=== PATIENT | male | born 1990 | race African-American/Black ===

== ENCOUNTER 2018-08-01 06:40 | Emergency (ER) | payer OTHER ==
[~2018-08-01] VITALS: Ht 185.4 cm; Wt 99.8 kg
[~2018-08-01 06:40] MED LIST: AMOX500C2 PO; IBUP800T26 PO; PENI500T PO; SULF1TAB38 PO
[2018-08-01] MEDS ORDERED: hydrALAZINE (APESOLINE) 20 MG/ML VIAL IV ONE (07:00)
[2018-08-01 07:09] LABS: BASOPHILS % (AUTO) 0 % (0-10); EOSINOPHILS # (AUTO) 0.1 10^3/uL (0.0-0.3); EOSINOPHILS % (AUTO) 1 % (0-10); HEMATOCRIT 44 % (40-54); HEMOGLOBIN 14.7 G/DL (13.3-17.7); LYMPHOCYTES % (AUTO) 30 % (12-44); MEAN CORPUSCULAR HEMOGLOBIN 30 PG (25-34); MEAN CORPUSCULAR HGB CONC 34 G/DL (32-36); MEAN CORPUSCULAR VOLUME 88 FL (80-99); MEAN PLATELET VOLUME 9.7 FL (7.4-10.4); MONOCYTES # (AUTO) 0.6 X 10^3 (0.0-1.0); MONOCYTES % (AUTO) 6 % (0-12); NEUTROPHILS # (AUTO) 6.2 X 10^3 (1.8-7.8); NEUTROPHILS % (AUTO) 63 % (42-75); PLATELET COUNT 250 10^3/uL (130-400); RED CELL DISTRIBUTION WIDTH 13.3 % (10.0-14.5); WHITE BLOOD COUNT 9.8 10^3/uL (4.3-11.0)
--- NOTE | 2018-08-01 07:09 | ED Cough/URI ---
General Stated Complaint: CP,SOB Source: patient Exam Limitations: no limitations History of Present Illness Date Seen by Provider: Aug 01, 2018 Time Seen by Provider: 07:04 Initial Comments This 27-year-old white male presents with cough for 2 months and chest pain for 2 weeks. Patient relates that it been smoking until 2 months ago when he developed cough. Stopping smoking and has not helped. The cough is nonproductive. 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 Patient's left-sided chest pain as pleuritic in nature and is relieved by raising his left arm over his head and belching. There does not appear to be a family history of heart disease. The chest pain is nonexertional in nature. Patient denies associated fever or chill. Patient has been told that he has high blood pressure which he is not treating. Allergies and Home Medications Allergies Coded Allergies: No Known Drug Allergies (Unverified , 11/23/10) Home Medications Amoxicillin 500 Mg Capsule, 2 EACH PO TID Prescribed by: JEAN MULLEN on 06/27/14 1318 Patient Home Medication List Home Medication List Reviewed: Yes Review of Systems Review of Systems Constitutional: No chills, No fever, No weakness EENTM: No ear pain, No throat pain Respiratory: see HPI, cough Cardiovascular: see HPI, chest pain Gastrointestinal: No abdominal pain, No diarrhea, No nausea, No vomiting Genitourinary: no symptoms reported; No dysuria, No frequency Musculoskeletal: no symptoms reported; No back pain Skin: No rash Psychiatric/Neurological: No Symptoms Reported Hematologic/Lymphatic: No Symptoms Reported Immunological/Allergic: no symptoms reported Past Itnbxgy-Oefcwd-Nkisnr Hx Past Med/Social Hx: Reviewed Nursing Past Med/Soc Hx Patient Social History Recent Foreign Travel: No Contact w/Someone Who Travel: No Past Medical History Reproductive Disorders: No Family Medical History No Pertinent Family Hx Physical Exam Vital Signs - First Documented 08/01/18 06:45 Temp 97.9 Pulse 109 Resp 18 B/P (MAP) 186/119 (141) Pulse Ox 99 O2 Delivery Nasal Cannula Capillary Refill : Height: 6'1" Weight: 220lbs. oz. 99.184581tv; BMI Method:Stated General Appearance: WD/WN, no apparent distress Eyes: Bilateral Eye Normal Inspection HEENT: normal ENT inspection Neck: supple, normal inspection Respiratory: normal breath sounds Cardiovascular: regular rate, rhythm, no murmur Gastrointestinal: normal bowel sounds, soft Extremities: normal range of motion, non-tender, normal inspection Neurologic/Psychiatric: no motor/sensory deficits, alert, normal mood/affect, oriented x 3 Skin: normal color, warm/dry Progress/Results/Core Measures Suspected Sepsis SIRS Temperature: Pulse: Respiratory Rate: Laboratory Tests 08/01/18 07:00: White Blood Count 9.8 Blood Pressure / Mean: Laboratory Tests 08/01/18 07:00: Creatinine 1.06, Platelet Count 250, Total Bilirubin 0.3 Results/Orders Lab Results Laboratory Tests Test 08/01/18 07:00 Range/Units White Blood Count 9.8 4.3-11.0 10^3/uL Red Blood Count 4.95 4.35-5.85 10^6/uL Hemoglobin 14.7 13.3-17.7 G/DL Hematocrit 44 40-54 % Mean Corpuscular Volume 88 80-99 FL Mean Corpuscular Hemoglobin 30 25-34 PG Mean Corpuscular Hemoglobin Concent 34 32-36 G/DL Red Cell Distribution Width 13.3 10.0-14.5 % Platelet Count 250 130-400 10^3/uL Mean Platelet Volume 9.7 7.4-10.4 FL Neutrophils (%) (Auto) 63 42-75 % Lymphocytes (%) (Auto) 30 12-44 % Monocytes (%) (Auto) 6 0-12 % Eosinophils (%) (Auto) 1 0-10 % Basophils (%) (Auto) 0 0-10 % Neutrophils # (Auto) 6.2 1.8-7.8 X 10^3 Lymphocytes # (Auto) 3.0 1.0-4.0 X 10^3 Monocytes # (Auto) 0.6 0.0-1.0 X 10^3 Eosinophils # (Auto) 0.1 0.0-0.3 10^3/uL Basophils # (Auto) 0.0 0.0-0.1 10^3/uL Sodium Level 140 135-145 MMOL/L Potassium Level 3.3 L 3.6-5.0 MMOL/L Chloride Level 106 98-107 MMOL/L Carbon Dioxide Level 22 21-32 MMOL/L Anion Gap 12 5-14 MMOL/L Blood Urea Nitrogen 15 7-18 MG/DL Creatinine 1.06 0.60-1.30 MG/DL Estimat Glomerular Filtration Rate > 60 BUN/Creatinine Ratio 14 Glucose Level 97 70-105 MG/DL Calcium Level 10.4 H 8.5-10.1 MG/DL Corrected Calcium 8.5-10.1 MG/DL Total Bilirubin 0.3 0.1-1.0 MG/DL Aspartate Amino Transf (AST/SGOT) 24 5-34 U/L Alanine Aminotransferase (ALT/SGPT) 22 0-55 U/L Alkaline Phosphatase 80 40-136 U/L Troponin I < 0.028 <0.028 NG/ML Total Protein 8.6 H 6.4-8.2 GM/DL Albumin 5.2 H 3.2-4.5 GM/DL My Orders Orders - KANIKA VO MD Cbc With Automated Diff (08/01/18 06:58) Comprehensive Metabolic Panel (08/01/18 06:58) Troponin I (08/01/18 06:58) Chest 1 View, Ap/Pa Only (08/01/18 06:58) Ekg Tracing (08/01/18 06:58) Hydralazine Injection (Apresoline Inject (08/01/18 07:00) Vital Signs/I&O 08/01/18 08/01/18 06:45 06:45 Temp 97.9 Pulse 109 Resp 18 B/P (MAP) 186/119 (141) Pulse Ox 99 O2 Delivery Nasal Cannula Capillary Refill : Progress Note : Time: 08:00 Progress Note The patient's chest x-ray was clear. EKG demonstrated LVH by voltage criteria no acute current of injury was noted the patient was in a sinus rhythm at 80. Patient's blood pressure was significantly elevated. He was treated with 10 mg of hydralazine IV. Patient's blood pressure began to normalize. I discussed findings with the patient. I asked that he continue with clonidine for which I wrote a prescription. 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 I asked that he return if any problems or questions. Departure Impression Primary Impression: Viral URI Additional Impression: Hypertension Qualified Codes: I10 - Essential (primary) hypertension Disposition: 01 HOME, SELF-CARE Condition: Improved Departure-Patient Inst. Decision time for Depature: 08:03 Referrals: [facility],LOCAL PHYSICIAN (PCP) Primary Care Physician Patient Instructions: High Blood Pressure (DC) Add. Discharge Instructions: Clonidine 0.1 mg orally twice daily. Follow up closely with [facility] on Friday. Return of any problems or questions. KANIKA VO MD Aug 01, 2018 07:09
--- NOTE | 2018-08-01 07:25 | Diagnostic Imaging Report ---
CHEST 1 VIEW, AP/PA ONLY Indication: Chest pain and shortness of air Comparison: 06/27/2014 Findings: No focal airspace disease in the visualized lungs. Please note that the posterior lower lobes are poorly evaluated by portable radiography. No pleural effusion or pneumothorax. Normal cardiomediastinal silhouette. Impression: No acute cardiopulmonary process by portable radiography. Dictated by: Dictated on workstation # [id number]
[2018-08-01 07:26] LABS: ALANINE AMINOTRANSFERASE 22 U/L (0-55); ALBUMIN 5.2 GM/DL (3.2-4.5); ALKALINE PHOSPHATASE 80 U/L (40-136); BILIRUBIN,TOTAL 0.3 MG/DL (0.1-1.0); BUN/CREATININE RATIO 14; CALCIUM 10.4 MG/DL (8.5-10.1); CARBON DIOXIDE 22 MMOL/L (21-32); CHLORIDE 106 MMOL/L (98-107); CREATININE SERUM 1.06 MG/DL (0.60-1.30); GFR ESTIMATED > 60; GLUCOSE 97 MG/DL (70-105); POTASSIUM 3.3 MMOL/L (3.6-5.0); SODIUM 140 MMOL/L (135-145); TOTAL PROTEIN 8.6 GM/DL (6.4-8.2)
[2018-08-01 08:20] VITALS: BP 138/89
== END 2018-08-01 08:20 | disposition home or self-care (01) ==
LOC: EDUNIT# 06:40 → ER 06:44
DX: J06.9 Acute upper respiratory infection, unspecified (principal); I10 Essential (primary) hypertension
CPT/HCPCS: 36415; 71045; 80053; 84484; 85025; 93005

== ENCOUNTER → 2022-09-18 | Outpatient (CLI) | payer OTHER | END | disposition home or self-care (01) | LOC: PREOP 05:52 | PROVIDERS: ATTEND Surgery | DX: Z01.818 Encounter for other preprocedural examination (principal) ==